=== PATIENT | male | born 1960 | race Caucasian/White ===

== ENCOUNTER → 2016-05-10 | Outpatient (CLI) | payer BC ==
[~2016-05-10] MED LIST: COREG DPS12.5 MG PO
== END | disposition home or self-care (01) ==
LOC: RAD.S 08:57
DX: R74.8 Abnormal levels of other serum enzymes (principal); N28.1 Cyst of kidney, acquired

== ENCOUNTER → 2016-05-14 | Outpatient (CLI) | payer BC | END | disposition home or self-care (01) | LOC: RAD.S 07:35 | DX: R80.9 Proteinuria, unspecified (principal); R74.8 Abnormal levels of other serum enzymes ==

== ENCOUNTER → 2016-06-01 | Outpatient (CLI) | payer BC | END | disposition home or self-care (01) | LOC: RAD.S 05-27 08:00 | DX: N28.1 Cyst of kidney, acquired (principal); I51.7 Cardiomegaly; M47.895 Other spondylosis, thoracolumbar region ==

== ENCOUNTER → 2016-06-04 | Outpatient (CLI) | payer BC | END | disposition home or self-care (01) | LOC: RAD.S 11:30 | DX: I51.7 Cardiomegaly (principal); I10 Essential (primary) hypertension ==

== ENCOUNTER 2016-06-18 19:20 | Inpatient (IN) | payer SELFPAY ==
[~2016-06-18] VITALS: Ht 170.2 cm; Wt 71.8 kg
--- NOTE | 2016-06-20 07:39 | ER ---
ADMIT: 06/18/2016 RM/LOC: 314 [facility] MR#: [id number] [address] [facility] [address] [place], [place] [address] ARTEMIO BOSS [address] [facility] [address] [place] [address] Emergency Room Report SEX: M AGE: 56 : 1960 DATE: 06/18/2016 HISTORY OF PRESENT ILLNESS: The patient is a 56-year-old male with past medical history of hypertension, was brought here with a chief complaint of 1 week of feeling weak and not having appetite and also nausea and vomiting, which is nonbilious and nonbloody, and also per , sometimes the patient becomes disoriented and a little confused. The patient also complains of mild exertional chest discomfort and difficulty breathing which is also intermittent. PHYSICAL EXAMINATION: VITAL SIGNS: Vitals show blood pressure of 160/93 with a heart rate of 103, respiratory rate of 18, and temperature of 97.4. GENERAL: The patient is awake, lethargic, and is oriented to person and situation, but he is not oriented to time. HEENT: Pupils are 3 mm, reactive to light. Normal extraocular movement. Normal pharynx. NECK: Nontender without any pathologies, normal bilateral. LUNGS: Equal breath sounds. HEART: Normal S1 and S2 without murmurs or extra sounds. ABDOMEN: Soft and nontender without any rebound. SKIN AND EXTREMITIES: Normal. The patient has no swelling in extremities, and Freddie sign is negative. NEUROLOGIC: Motor and sensory are grossly normal, and cranial nerves are grossly normal too. DIAGNOSTIC DATA: EKG did not show any ST or T changes and was negative for arrhythmias. Chest x-ray did not show any pathology. LABORATORY DATA: Troponin I was negative. BNP was 144. The patient had white cells of 6.2 with hemoglobin of 12.5. The patient had sodium of 115 and potassium of 2.5 and was started on 1 L of fluid, normal saline, and 60 mEq of K-Dur. ASSESSMENT AND PLAN: The patient is still talking, answering the question, and following the commands; and possible causes of hyponatremia is hypovolemic hyponatremia as the patient is on hydrochlorothiazide. Internal Medicine was consulted, and the patient was admitted for further followups and treatments of altered mental status, severe hyponatremia, and hypokalemia. While the patient was admitted, during which time, the patient went to the bathroom, he fell and hit the back of the head to the ground. The patient had tonic-clonic ADMIT: 06/18/2016 RM/LOC: 314 [facility] [place] MR#: [id number] [address] [address] [address] [facility] [place] [address] Emergency Room Report SEX: M AGE: 56 : 1960 seizure, unknown duration. Internal Medicine residents and the nurse were present, and I joined them after I heard about it in few seconds. The patient had a laceration from the left occipital area, and also, the patient has blood in the mouth questionable for tongue versus buccal versus lip injury. The patient was stabilized, and a cervical collar was put in place. The patient was put on backboard with cervical spine stabilization. The back of the head was checked, and there was a laceration which was superficially stapled just to stop the active bleeding. CT of the head and neck was negative for any pathologies. The patient was started on 3% IV sodium solution 50 mL/h. The patient was admitted to PCU/ICU for further followups and treatments of severe hyponatremia, hypokalemia, altered mental status, scalp laceration, status post fall and seizure. Gilles Hoffman MD/ addison JOB #: [id number] CC: Sophia Jarrell MD, Attending Physician Sophia Jarrell MD, Family Physician
[2016-06-22] MEDS ORDERED: COREG DPS12.5 MG PO (07:20)
--- NOTE | 2016-06-26 09:07 | HP ---
ADMIT: 06/18/2016 RM/LOC: 314 [facility] MR#: [id number] [address] [facility] [address] [place], [place] [address] THOR HANSON [address] [facility] [address] [place] [address] History and Physical SEX: M AGE: 56 : 1960 DATE OF SERVICE: CHIEF COMPLAINT: Nausea, vomiting, and confusion. HISTORY OF PRESENT ILLNESS: Mr. Hanson is a 56-year-old male with past medical history significant for hypertension and anxiety disorder, presents to the emergency room today with complaints of nausea and vomiting and confusion. The patient is a Ivorian speaking only. The patient was accompanied by his who is able to provide some translation. Apparently, the patient has been experiencing significant nausea and vomiting for the last week. Over the last 4 days, the patient has been experiencing increasing confusion, having difficulty with memory. The patient has continued to take his medications which include Coreg, hydrochlorothiazide, lisinopril, and lorazepam. Symptoms became severe enough today that brought the patient to the emergency room. On presentation, labs were concerning initially for a sodium of 115 and a potassium of 2.5. The patient was started on normal saline and only received about 200 mL. The patient got out of bed to use the bathroom and provide urine sample when he experienced sudden onset tonic clonic seizure. The patient fell, hit his head against the bathroom sink on the floor face up. The patient had significant blood coming from his mouth and his head. I was available to assist patient. I was able to support his head and neck, roll him over on to the side as to prevent aspiration until seizing spontaneously stopped within 30 seconds. The patient was placed in C-spine collar and back brace and transported back to bed at which time, a Carias catheter was placed, IV fluids were discontinued. The patient was unable to provide any information at this time given his confusion and continued to say that he felt like he had to urinate even though he had a Carias catheter in place. When asked if he has had any pain, he denied any, but the patient is not oriented to place or time. REVIEW OF SYSTEMS: Unable to be obtained given acute confusion and seizure. PAST MEDICAL HISTORY: Significant for hypertension and anxiety. PAST SURGICAL HISTORY: Unknown. states that he does not have any surgeries now. FAMILY HISTORY: Unknown. SOCIAL HISTORY: No tobacco use. The patient does have significant alcohol use. He drinks anywhere from 6 to 8 beers per day. Unknown if he has ever had complications with withdrawal in the past. ALLERGIES: NO KNOWN DRUG ALLERGIES. PHYSICAL EXAMINATION: VITAL SIGNS: Blood pressure 137/90, heart rate 127, respirations 15, 97% on room air. GENERAL: The patient is now resting comfortably in bed. Alert, seems to be less confused. He is beginning to answer questions more appropriately. ADMIT: 06/18/2016 RM/LOC: 314 [facility] MR#: [id number] [address] [place] [address] THOR HANSON [address] [place] [address] History and Physical SEX: M AGE: 56 : 1960 HEAD, EARS, EYES, NOSE, THROAT: The patient has significant laceration on back of head with forming hematoma. Significant amount of blood both on the back of his head and also in his oral cavity. The patient has full teeth. The patient's pupils are equally reactive to light and accommodation. LUNGS: The patient is clear to auscultate bilaterally. Breathing is nonlabored. CARDIAC: Tachycardic, but regular. No murmurs or heaves. EXTREMITIES: No pedal edema. NEUROLOGIC: The patient is oriented to self only. PSYCH: The patient is calm. LABORATORY DATA: WBC 6.2, hemoglobin 12.5, platelets 146, MCV 101. BMP with sodium of 115, now 118 on recheck; potassium 2.5; chloride 72; CO2 of 22; BUN 8; creatinine 1.1. AST 121, ALT 94, total bilirubin 0.8. INR 1. Lipase 158. Cortisol 23.69. Anion gap of 24. IMAGING: CT head was normal. CT C-spine with no acute fractures. CT chest pending. ASSESSMENT AND PLAN: Mr. Thor Hanson is a 56-year-old man with past medical history significant for hypertension, anxiety, and alcohol use disorder, presents with one-week nausea, vomiting, and confusion, found to be severely hyponatremic. 1. Hyponatremia. Sodium 115 on arrival. Treated with about 200 mL of normal saline. Repeat sodium was 118 after seizure. The patient was then given 50 mL of hypertonic saline and 1 of DDAVP in the ER. Plan: Continue sodium checks q.2 hours for now. Etiology of hyponatremia is unclear. Suspect either hypovolemic or euvolemic. We will monitor for overcorrection. The patient may require additional IV fluids or DDAVP. 2. Hypokalemia. Potassium is 2.5 on admission. He was given some oral in the emergency department. Giving 60 mEq IV now. Checking additional electrolytes. 3. Hypertension. Holding home antihypertensives. 4. Alcohol use disorder. Adding on alcohol level to lab. Suspectable to be elevated his anion gap as 24. We will have to monitor with alcohol withdrawal protocol. 5. High anion gap metabolic acidosis. Anion gap of 24. We will be repeating BMP. Suspect related to acute alcohol intoxication. 6. Toxic metabolic encephalopathy, likely related to hyponatremia, electrolyte derangements. ADMIT: 06/18/2016 RM/LOC: 314 [facility] MR#: [id number] [facility] [address] [address] THOR HANSON [address] [place] [address] History and Physical SEX: M AGE: 56 : 1960 7. Acute seizure. Likely related to hyponatremia. We will continue with monitor with neuro checks q.1 hour for now. If normal, we will decrease to q.2 hour overnight. 8. Head trauma with laceration. Currently in packing for now. Hemostasis has been achieved. We will consult General Surgery in the morning to evaluate and possibly stitch. 9. Diet: NPO. 10.Deep venous thrombosis prophylaxis: Holding given recent head trauma and bleed. 11.Disposition. Likely hospitalize for few days. My telephone number is [phone]. Please call with any questions or concerns. 75 minutes was spent in the admission and evaluation of this patient. Landon Baumann MD Resident / Sophia Jarrell MD / addison JOB #: [id number] CC: Sophia Jarrell, Attending Physician Sophia Jarrell, Family Physician
--- NOTE | 2016-07-05 12:43 | OR ---
ADMIT: 06/18/2016 RM/LOC: 314 [facility] MR#: [id number] [address] [place], [place] [address] ARTEMIO BOSS [address] [facility] [address] [place] [address] Operative/Delivery Room Report SEX: M AGE: 56 : 1960 SURGERY DATE: 06/19/2016 SURGEON: Rashid Woods MD PREOPERATIVE DIAGNOSIS: Laceration to the back of his head status post fall. POSTOPERATIVE DIAGNOSIS: A 1 cm laceration, which essentially was not stapled. The remaining portion of the laceration had previously been stapled in the ER. PROCEDURE PERFORMED: Simple closure of 1 cm laceration to the back of his head, scalp area with ella. ANESTHESIA: None. DESCRIPTION OF PROCEDURE: The patient was in the ICU bed. I cleaned off the blood and clot off the back of his head. He had several ella already in place that had been placed in the ER last night after his fall and that was taking care of the majority of the laceration, but there is about a 1 cm length of the laceration that was not closed. So, I cleansed this area with saline and then just placed three simple ella to close that portion of laceration back together. He tolerated the procedure well and bulky gauze dressing was applied. Rashid Woods MD/ sherinel JOB #: [id number] CC: Sophia Jarrell, Attending Physician Sophia Jarrell, Family Physician
--- NOTE | 2016-11-08 10:23 | DS ---
ADMIT: 06/18/2016 RM/LOC: 314 [facility] MR#: [id number] [address] [facility] [address] [place], [place] [address] [address]EMIO BOSS [address] [place] [address] Discharge Summary SEX: M AGE: 56 : 1960 ADMISSION DATE: 06/18/2016 DISCHARGE DATE: 06/21/2016 DISCHARGE DIAGNOSES: 1. Hyponatremia. 2. Seizure. 3. Hypokalemia. 4. Elevated LFTs (liver function tests). 5. Head laceration. 6. Hypertension. 7. Alcoholism. 8. Hypokalemia. 9. History of KUB. 10.Right flank pain. HOSPITAL COURSE: The patient was admitted after a fall and seizure, which was thought to be brought on by alcohol. He was admitted initially to the ICU. With his hyponatremia, he was monitored closely. He did receive some hypertonic saline and had improvement and resolution of his hyponatremia. His other electrolytes (potassium, magnesium) were also monitored. He was also monitored for alcohol withdrawal. In general, patient was doing quite well. He really had no other complaints. He was up walking around and felt well. The plan was for patient to discharge home on Coreg 12.5 p.o. b.i.d., and otherwise to follow up with his PCP in 2-3 weeks. I spent 35 minutes in discharge planning, and coordination of care with this patient. Sophia Jrarell MD/ kimberly JOB #: [id number] CC: Sophia Jarrell MD, Attending Physician Sophia Jarrell MD, Family Physician
== END 2016-06-21 11:30 | disposition home or self-care (01) | DRG 640 ==
LOC: ER 19:20 → 3ICU 22:31
PROVIDERS: ADMIT Internal Medicine
PROC: 0HQ0XZZ Repair Scalp Skin, External Approach (ICD-10-PCS; principal; 2016-06-18)
PROC: 0HQ0XZZ Repair Scalp Skin, External Approach (ICD-10-PCS; 2016-06-19)
PROC: HZ2ZZZZ Detoxification Services for Substance Abuse Treatment (ICD-10-PCS; 2016-06-19)
DX: E87.1 Hypo-osmolality and hyponatremia (principal); G92 Toxic encephalopathy; E86.9 Volume depletion, unspecified; E87.2 Acidosis; D69.6 Thrombocytopenia, unspecified; R56.9 Unspecified convulsions; I10 Essential (primary) hypertension; R41.82 Altered mental status, unspecified; E87.6 Hypokalemia; S01.01XA Laceration without foreign body of scalp, initial encounter; F41.9 Anxiety disorder, unspecified; F10.10 Alcohol abuse, uncomplicated; E26.1 Secondary hyperaldosteronism; D64.9 Anemia, unspecified; R50.9 Fever, unspecified